=== PATIENT | male | born 1985 | race Caucasian/White ===

== ENCOUNTER 2016-12-09 21:35 | Emergency (ER) | payer OTHER ==
[~2016-12-09] VITALS: Ht 157.4 cm; Wt 49.9 kg
[2016-12-09] MEDS ORDERED: NAPROSYN500 MG PO (23:29)
== END 2016-12-09 23:46 | disposition home or self-care (01) ==
LOC: ED 21:35
DX: S62.235A Other nondisplaced fracture of base of first metacarpal bone, left hand, initial encounter for closed fracture (principal); S00.83XA Contusion of other part of head, initial encounter; V80.010A Animal-rider injured by fall from or being thrown from horse in noncollision accident, initial encounter; Y93.52 Activity, horseback riding; Y92.89 Other specified places as the place of occurrence of the external cause; Y99.9 Unspecified external cause status